=== PATIENT | female | born 1980 | race Hispanic/Latino ===

== ENCOUNTER → 2018-11-23 | Outpatient (CLI) | payer OTHER ==
[~2018-11-23] MED LIST: CALC667T5 PO; FOLI1TAB85 PO; INSU100C14 SQ; INSU100I21 SQ; LISI10TA7 PO; METO50TA18 PO; NIFE30TA91 PO; PANTOPRAZOLE PO; PRED10TA3 PO; vitamin D2 PO
== END | disposition home or self-care (01) ==
LOC: SHCH 10:28
PROVIDERS: ATTEND Internal Medicine Cardiovascular Disease
DX: I11.9 Hypertensive heart disease without heart failure (principal)
CPT/HCPCS: 93306

== ENCOUNTER 2018-12-30 10:00 | Inpatient (IN) | payer MEDICARE ==
[~2018-12-30] VITALS: Ht 160 cm; Wt 68.9 kg
[~2018-12-30 10:00] MED LIST changes: -CALC667T5 PO; +CALC667T6 PO
[2019-01-11] VITALS (19 sets, daily range): BP systolic 122–175; BP diastolic 65–91
--- NOTE | 2019-01-11 15:07 | NUR ---
ABNORMAL EKG SPOKE TO DANIEL UPTON AND ADVISED HIM OF ABNORMAL EKG. ORDERED TROPONIN LEVEL AND TO FAX EKG. EKG FAXED AND TROPONIN LEVEL DONE.
[2019-01-11 15:34] LABS: BASOPHILS % (AUTO) 0.9 % (0.0-5.0); HEMATOCRIT 36.4 % (36-48); LYMPHOCYTES % (AUTO) 10.3 % (21.0-51.0); MEAN CORPUSCULAR HEMOGLOBIN 31.8 pg (27.0-33.0); MEAN CORPUSCULAR HGB CONC 32.4 g/dL (32.0-36.0); MEAN CORPUSCULAR VOLUME 98.2 fL (79-99); MONOCYTES % (AUTO) 7.3 % (3.0-13.0); NEUTROPHILS % (AUTO) 76.5 % (40.0-77.0); PLATELET COUNT (AUTO) 198 K/uL (130-400); RED BLOOD CELL COUNT(AUTO) 3.71 MIL/uL (4.00-5.50); WHITE BLOOD COUNT (AUTO) 7.9 K/uL (4.8-10.8)
[2019-01-11 15:43] LABS: CREATININE 7.4 mg/dL (0.5-1.5); POTASSIUM 4.8 mmol/L (3.5-5.1)
[2019-01-11 15:44] LABS: INR 0.97 (0.85-1.15); PARTIAL THROMBOPLASTIN TIME 36.6 SEC (26.3-35.5); PROTHROMBIN TIME 10.2 SEC (9.6-11.6)
--- NOTE | 2019-01-11 16:15 | NUR ---
meds aspirin 325 mg po given at this time - Dr. Boyer / Dr. estela diego at bedside assessing patient Addendum: 01/12/19 at 0830 by ASCENCION ELLIS RN meds aspirin 325mg given at 1625- Dr. Boyer/ Dr. Estela Diego at bedside assessing patient
[2019-01-11] MEDS ORDERED: ASPIRIN 325 MG TABLET ONE (16:25)
--- NOTE | 2019-01-11 16:25 | NUR ---
assess pt awake and alert, denies any chest pain or any other discomforts. mom at bedside.
--- NOTE | 2019-01-11 16:25 | NUR ---
code code stemi called. Peyton potter notified of elevated troponin level 17.91,
[2019-01-11] MEDS ORDERED: METHYLPREDNISOLONE SOD SUCC 125MG/2ML VIAL ONE (16:37)
[2019-01-11] MEDS ORDERED: DiphenhydrAMINE HCL 50 MG/ML VIAL ONE (16:37)
--- NOTE | 2019-01-11 16:40 | NUR ---
meds benadry 25mg iv/ solumedrol 125mg iv given at this time ,pt allergic to contrast and going in for cath procedure stat
--- NOTE | 2019-01-11 16:45 | NUR ---
patient pt taken to mini lab operator via bed, for code stemi
[2019-01-11] MEDS ORDERED: AMLO10TA7 PO (18:16)
[2019-01-11] MEDS ORDERED: AURYXIA PO (18:16)
[2019-01-11] MEDS ORDERED: INSU100V12 SQ (18:16)
[2019-01-11] MEDS ORDERED: ACETAMINOPHEN-CODEINE 300/30MG TAB PO PRN ×2 (18:30)
[2019-01-11] MEDS ORDERED: NITROGLYCERIN 50 MG/D5% WATER 1 BOT IV PRN (18:30)
[2019-01-11] MEDS ORDERED: DEXTROSE 50%-WATER 50 ML DISP.SYRIN IV PRN (18:30)
[2019-01-11] MEDS ORDERED: MORPHINE SULFATE 4 MG/1ML SYG IV PRN (18:30)
[2019-01-11] MEDS ORDERED: ONDANSETRON HCL 4 MG/2 ML VIAL IVP PRN (18:30)
[2019-01-11] MEDS ORDERED: GLUCAGON 1MG KIT 1 MG ML IM PRN (18:30)
[2019-01-11] MEDS ORDERED: ALPRAZOLAM 0.5 MG TABLET PO PRN (18:30)
--- NOTE | 2019-01-11 19:00 | NUR ---
[facility]CE[facility] WITH STENTS. RT GROIN DDI WITHOUT BLEEDING OR HEMATOMA. PULSES PRESENT WITH DOPPLER. GOOOD CMS TO FEET. PLACED ON OXYACETYLENE CUTTER, NIBP, PULSE OXIMETER. CALL LIGHT GIVEN AND EXPLAINED. INSTRUCTED ON BEDREST IN SUPINE POSITION FOR NOW TO PREVENT BLEEDING AND VERBALIZED UNDERSTANDING. INSTRUCTED TO CALL NURSE IF SHE HAS CHEST PAIN, SOB. ALSO TO CALL IF SHE HAS PAIN OR NUMBNESS IN HER RT LEG. ALSO TO CALL IF SHE FEELS WETNESS OR WARMTH IN RT GROIN.ASSESSMENT COMPLETED SEE FLOW SHEET.
[2019-01-11] MEDS: AMLODIPINE BESYLATE 5 MG TAB PO SCH (21:57)
[2019-01-11] MEDS: METOPROLOL TARTRATE 50 MG TAB PO SCH (21:57)
[2019-01-11] MEDS: LISINOPRIL 10 MG TABLET PO SCH (21:58)
[2019-01-11] MEDS: ATORVASTATIN CALCIUM 20 MG TABLET PO SCH (21:58)
[2019-01-11] MEDS: INSULIN HUMULIN R 100 UNIT/ML 3ML SQ SCH (22:07)
[2019-01-11] MEDS: INSULIN GLARGINE 100 UNITS/ML 10 ML VIAL SQ SCH (22:11)
[2019-01-12] VITALS (11 sets, daily range): BP systolic 94–126; BP diastolic 53–65
[2019-01-12 04:03] LABS: HEMATOCRIT 39.4 % (36-48); MEAN CORPUSCULAR HEMOGLOBIN 32.4 pg (27.0-33.0); MEAN CORPUSCULAR HGB CONC 32.5 g/dL (32.0-36.0); MEAN CORPUSCULAR VOLUME 99.7 fL (79-99); PLATELET COUNT (AUTO) 180 K/uL (130-400); RED BLOOD CELL COUNT(AUTO) 3.95 MIL/uL (4.00-5.50); RED CELL DISTRIBUTION WIDTH 14.6 % (11.0-15.5); WHITE BLOOD COUNT (AUTO) 6.6 K/uL (4.8-10.8)
[2019-01-12 04:29] LABS: POTASSIUM 5.2 mmol/L (3.5-5.1)
[2019-01-12 04:36] LABS: CREATININE 8.2 mg/dL (0.5-1.5); TROPONIN I 27.03 ng/mL (0.00-0.06)
[2019-01-12] MEDS: PANTOPRAZOLE SODIUM 40 MG TABLET.DR PO SCH (06:42)
[2019-01-12] MEDS: INSULIN LISPRO 100 UNIT/ML 3ML SQ SCH ×3 (06:46→16:55)
[2019-01-12] MEDS: INSULIN GLARGINE 100 UNITS/ML 10 ML VIAL SQ SCH ×2 (06:47→20:42)
[2019-01-12] MEDS: INSULIN HUMULIN R 100 UNIT/ML 3ML SQ SCH ×4 (07:30→20:42)
[2019-01-12] MEDS: AURYXIA PO SCH ×3 (08:00→17:00)
[2019-01-12] MEDS ORDERED: CLOPIDOGREL BISULFATE 75 MG TAB PO SCH (09:00)
[2019-01-12] MEDS: LISINOPRIL 10 MG TABLET PO SCH ×2 (09:35→21:00)
[2019-01-12] MEDS: ASPIRIN 81MG TAB.CHEW PO SCH (09:35)
[2019-01-12] MEDS: METOPROLOL TARTRATE 50 MG TAB PO SCH ×2 (09:36→21:00)
[2019-01-12] MEDS ORDERED: HEPARIN SODIUM 5000UNIT/ML 1ML VIAL ONE (20:21)
[2019-01-12] MEDS: TICAGRELOR 90 MG TABLET PO SCH (20:41)
[2019-01-12] MEDS: ATORVASTATIN CALCIUM 20 MG TABLET PO SCH (20:41)
[2019-01-12] MEDS ORDERED: SODIUM CHLORIDE 0.9% 1000ML 1,000 ML IV PRN (20:45)
[2019-01-12] MEDS ORDERED: 0.9% SODIUM CHLORIDE 1000 ML IV BAG IV PRN (20:45)
[2019-01-12] MEDS ORDERED: ACETAMINOPHEN 325 MG TAB PO PRN (20:45)
[2019-01-12] MEDS ORDERED: HEPARIN SODIUM 5000UNIT/ML 1ML VIAL IJ PRN ×2 (20:45)
[2019-01-12] MEDS: AMLODIPINE BESYLATE 5 MG TAB PO SCH (21:00)
[2019-01-13 04:03] VITALS: BP 105/58
[2019-01-13 04:26] LABS: HEMATOCRIT 33.6 % (36-48); MEAN CORPUSCULAR HEMOGLOBIN 32.2 pg (27.0-33.0); MEAN CORPUSCULAR HGB CONC 32.9 g/dL (32.0-36.0); PLATELET COUNT (AUTO) 187 K/uL (130-400); RED BLOOD CELL COUNT(AUTO) 3.43 MIL/uL (4.00-5.50); RED CELL DISTRIBUTION WIDTH 14.8 % (11.0-15.5); WHITE BLOOD COUNT (AUTO) 7.4 K/uL (4.8-10.8)
[2019-01-13 04:45] LABS: CREATININE 5.7 mg/dL (0.5-1.5); PHOSPHORUS 5.2 mg/dL (2.5-4.9); POTASSIUM 3.8 mmol/L (3.5-5.1)
[2019-01-13] MEDS: PANTOPRAZOLE SODIUM 40 MG TABLET.DR PO SCH (06:06)
[2019-01-13] MEDS: INSULIN LISPRO 100 UNIT/ML 3ML SQ SCH ×3 (06:07→16:56)
[2019-01-13] MEDS: INSULIN GLARGINE 100 UNITS/ML 10 ML VIAL SQ SCH ×2 (06:09→21:39)
[2019-01-13] MEDS: INSULIN HUMULIN R 100 UNIT/ML 3ML SQ SCH ×4 (06:09→21:40)
[2019-01-13 07:00] VITALS: BP 96/50
[2019-01-13] MEDS: AURYXIA PO SCH ×3 (08:00→16:57)
[2019-01-13] MEDS ORDERED: METHYLPREDNISOLONE SOD SUCC 125MG/2ML VIAL IVP PRN (08:00)
[2019-01-13] MEDS ORDERED: DiphenhydrAMINE HCL 50 MG/ML VIAL IVP PRN (08:00)
[2019-01-13] MEDS: FOLIC ACID/VITAMIN B COMP W-C 1 MG CAP/TAB PO SCH (08:51)
[2019-01-13] MEDS: ASPIRIN 81MG TAB.CHEW PO SCH (08:51)
[2019-01-13] MEDS: TICAGRELOR 90 MG TABLET PO SCH ×2 (08:52→20:40)
[2019-01-13] MEDS: LISINOPRIL 10 MG TABLET PO SCH ×3 (09:00→20:44)
[2019-01-13] MEDS: METOPROLOL TARTRATE 50 MG TAB PO SCH ×2 (09:00→20:40)
[2019-01-13 11:00] VITALS: BP_SYST 122; BP_SYST 91; BP_DIAS 58; BP_DIAS 74
--- NOTE | 2019-01-13 15:20 | NUR ---
DC PLAN VISITED WITH PATIENT. PATIENT LIVES WITH MOM AND SISTER. SEMI INDEPENDENT ABLE TO PERFORM SOME ADL'S. PATIENT HAS WHEEL CHAIR. PROVIDER [address] [facility] FOR DIALYSIS. FEELS SAFE TO RETURN HOME. Addendum: 01/13/19 at 1522 by ELIAZAR MELCHOR RN CM Amended: Links added.
[2019-01-13 16:00] VITALS: BP_SYST 122; BP_SYST 124; BP_DIAS 68; BP_DIAS 74
[2019-01-13 19:14] VITALS: BP 104/69
[2019-01-13] MEDS: AMLODIPINE BESYLATE 5 MG TAB PO SCH ×2 (20:39→20:43)
[2019-01-13] MEDS: ATORVASTATIN CALCIUM 20 MG TABLET PO SCH (20:40)
[2019-01-14] VITALS (7 sets, daily range): BP systolic 107–137; BP diastolic 63–79
[2019-01-14 03:53] LABS: HEMATOCRIT 33.4 % (36-48); MEAN CORPUSCULAR HEMOGLOBIN 32.2 pg (27.0-33.0); MEAN CORPUSCULAR HGB CONC 32.6 g/dL (32.0-36.0); MEAN CORPUSCULAR VOLUME 98.8 fL (79-99); PLATELET COUNT (AUTO) 202 K/uL (130-400); RED BLOOD CELL COUNT(AUTO) 3.38 MIL/uL (4.00-5.50); RED CELL DISTRIBUTION WIDTH 14.7 % (11.0-15.5); WHITE BLOOD COUNT (AUTO) 6.9 K/uL (4.8-10.8)
[2019-01-14 04:07] LABS: CREATININE 7.6 mg/dL (0.5-1.5); PHOSPHORUS 7.4 mg/dL (2.5-4.9); POTASSIUM 4.1 mmol/L (3.5-5.1)
[2019-01-14] MEDS: PANTOPRAZOLE SODIUM 40 MG TABLET.DR PO SCH ×2 (06:40→18:48)
[2019-01-14] MEDS: INSULIN HUMULIN R 100 UNIT/ML 3ML SQ SCH ×3 (06:41→16:30)
[2019-01-14] MEDS: INSULIN LISPRO 100 UNIT/ML 3ML SQ SCH ×3 (06:44→16:34)
[2019-01-14] MEDS: INSULIN GLARGINE 100 UNITS/ML 10 ML VIAL SQ SCH (06:45)
[2019-01-14 07:15] LABS: HEPATITIS A ANTIBODY IGM Negative (Negative); HEPATITIS B CORE IGM Negative (Negative); HEPATITIS Bs ANTIGEN SCREEN P Negative (Negative)
--- NOTE | 2019-01-14 08:30 | NUR ---
AM ASSESSMENT PT LAYING IN BED, HOB ELEVATED 30 DEGREES, RESTING. A/O X 3. NO SOB. NO DISTRESS NOTED. DENIES CHEST PAIN OR DISCOMFORT. DENIES PALPITATIONS. TELE: SR 70s. DENIES N/V AND/OR DIARRHEA. ANURIA. HD MWF. PT TO HAVE HD TODAY AND POSSIBLE DISCHARGE HOME AFTER TREATMENT COMPLETED. RT GROIN DSG DRY & INTACT. PUNCTURES SITE SOFT, NON-TENDER. NO BLEEDING, NO HEMATOMA NOTED. (+) BILATERAL WEAK PALPABLE PEDAL PULSES. UP AD JAZMYNE. INSTRUCTED TO CALL FOR ASSISTANCE. CALL PEREZ W/IN REACH.
[2019-01-14] MEDS ORDERED: Folic Acid/Vitamin B Comp W-C PO (13:52)
[2019-01-14] MEDS ORDERED: TICA90TA PO (13:52)
[2019-01-14] MEDS ORDERED: ATOR20TA65 PO (13:52)
[2019-01-14] MEDS ORDERED: ASPI-1005 PO (13:52)
--- NOTE | 2019-01-14 18:30 | NUR ---
HEMODIALYSIS 2.3L REMOVED DURING HD.
[2019-01-14] MEDS: TICAGRELOR 90 MG TABLET PO SCH (18:48)
[2019-01-14] MEDS: ASPIRIN 81MG TAB.CHEW PO SCH (18:48)
[2019-01-14] MEDS: METOPROLOL TARTRATE 50 MG TAB PO SCH (18:49)
[2019-01-14] MEDS: FOLIC ACID/VITAMIN B COMP W-C 1 MG CAP/TAB PO SCH (18:49)
[2019-01-14] MEDS: LISINOPRIL 10 MG TABLET PO SCH (18:49)
--- NOTE | 2019-01-14 18:50 | NUR ---
DISCHARGE VERBAL & WRITTEN DISCHARGE INSTRUCTIONS REVIEWED & GIVEN TO PT. QUESTIONS ENCOURAGED & CLARIFIED. PROPER CARE & ACTIVITY AFTER LHC W/STENT REVIEWED. NEW PRESCRIBED MEDICATIONS REVIEWED. PRESCRIPTION X 2 GIVEN TO PT. SIGNED COPIES OF PRESCRIPTIONS PLACED IN CHART. TELE ROBIN REMOVED. IV DISCONTINUED. PT TO GATHER PERSONAL BELONGINGS. WILL NOTIFY STAFF WHEN FAMILY ARRIVES TO TAKE PT HOME.
== END 2019-01-14 20:15 | disposition home or self-care (01) | DRG 246 ==
LOC: OBSVTOIN 01-11 18:28 → DAHIP 01-11 18:28 → 2BH 01-11 18:56 → 2DH 01-12 09:06 → EDSTATUS 01-13 14:00
PROVIDERS: ADMIT Internal Medicine Nephrology; ATTEND Internal Medicine Nephrology
PROC: 4A023N7 Measurement of Cardiac Sampling and Pressure, Left Heart, Percutaneous Approach (ICD-10-PCS; principal; 2019-01-11)
PROC: 027035Z Dilation of Coronary Artery, One Artery with Two Drug-eluting Intraluminal Devices, Percutaneous Approach (ICD-10-PCS; 2019-01-11)
PROC: B2111ZZ Fluoroscopy of Multiple Coronary Arteries using Low Osmolar Contrast (ICD-10-PCS; 2019-01-11)
PROC: 5A1D70Z Performance of Urinary Filtration, Intermittent, Less than 6 Hours Per Day (ICD-10-PCS; 2019-01-12)
PROC: 5A1D70Z Performance of Urinary Filtration, Intermittent, Less than 6 Hours Per Day (ICD-10-PCS; 2019-01-14)
DX: I21.09 ST elevation (STEMI) myocardial infarction involving other coronary artery of anterior wall (principal); N18.6 End stage renal disease; I12.0 Hypertensive chronic kidney disease with stage 5 chronic kidney disease or end stage renal disease; Z94.0 Kidney transplant status; I25.119 Atherosclerotic heart disease of native coronary artery with unspecified angina pectoris; I70.213 Atherosclerosis of native arteries of extremities with intermittent claudication, bilateral legs; D64.9 Anemia, unspecified; E10.22 Type 1 diabetes mellitus with diabetic chronic kidney disease; E10.319 Type 1 diabetes mellitus with unspecified diabetic retinopathy without macular edema; E10.40 Type 1 diabetes mellitus with diabetic neuropathy, unspecified; E10.51 Type 1 diabetes mellitus with diabetic peripheral angiopathy without gangrene; E10.65 Type 1 diabetes mellitus with hyperglycemia; E78.5 Hyperlipidemia, unspecified; H54.61 Unqualified visual loss, right eye, normal vision left eye; I25.5 Ischemic cardiomyopathy; Z99.2 Dependence on renal dialysis; Z79.02 Long term (current) use of antithrombotics/antiplatelets; Z79.4 Long term (current) use of insulin; Z79.82 Long term (current) use of aspirin; Z79.899 Other long term (current) drug therapy; Z83.3 Family history of diabetes mellitus; Z84.1 Family history of disorders of kidney and ureter; Z88.8 Allergy status to other drugs, medicaments and biological substances; Z91.041 Radiographic dye allergy status
CPT/HCPCS: 36415; 71045; 80048; 80061; 80074; 82550; 82948; 83874; 84100; 84484; 85025; 85027; 85347; 85610; 85730; 90935; 93005; 93306; 93458; 99156; 99157; C1725; C1760; C1769; C1887; C1894; C9600; G0378; J1200; J1644; J1815; J2930; J7030

== ENCOUNTER → 2019-03-14 | Outpatient (CLI) | payer MEDICARE ==
[~2019-03-14] MED LIST changes: +AMLO10TA7 PO; +ASPI-1005 PO; +ATOR20TA65 PO; +AURYXIA PO; -CALC667T6 PO; -FOLI1TAB85 PO; +Folic Acid/Vitamin B Comp W-C PO; +INSU100V12 SQ; -NIFE30TA91 PO; -PANTOPRAZOLE PO; -PRED10TA3 PO; +TICA90TA PO; -vitamin D2 PO
== END | disposition home or self-care (01) ==
LOC: RAH 15:47
PROVIDERS: ATTEND Internal Medicine Nephrology
DX: M85.861 Other specified disorders of bone density and structure, right lower leg (principal)
CPT/HCPCS: 73562

== ENCOUNTER → 2019-04-12 | Outpatient (CLI) | payer MEDICARE | END | disposition home or self-care (01) | LOC: OIH 07:40 | PROVIDERS: ATTEND Student in an Organized Health Care Education/Training Program | DX: K43.9 Ventral hernia without obstruction or gangrene (principal); N83.201 Unspecified ovarian cyst, right side; N26.1 Atrophy of kidney (terminal); I70.0 Atherosclerosis of aorta | CPT/HCPCS: 74176 ==

== ENCOUNTER 2019-05-05 06:27 | Emergency (ER) | payer MEDICARE | END 2019-05-05 07:14 | disposition home or self-care (01) | LOC: EDH 06:27 | DX: T82.49XA Other complication of vascular dialysis catheter, initial encounter (principal); I25.10 Atherosclerotic heart disease of native coronary artery without angina pectoris; E11.22 Type 2 diabetes mellitus with diabetic chronic kidney disease; I12.0 Hypertensive chronic kidney disease with stage 5 chronic kidney disease or end stage renal disease; N18.6 End stage renal disease; Z99.2 Dependence on renal dialysis; Z91.041 Radiographic dye allergy status; Z88.1 Allergy status to other antibiotic agents; Z88.8 Allergy status to other drugs, medicaments and biological substances; Y84.8 Other medical procedures as the cause of abnormal reaction of the patient, or of later complication, without mention of misadventure at the time of the procedure; Y92.89 Other specified places as the place of occurrence of the external cause | CPT/HCPCS: 71046 ==

== ENCOUNTER 2019-08-18 20:15 | Emergency (ER) | payer MEDICARE ==
[2019-08-18 21:26] LABS: BASOPHILS % (AUTO) 0.9 % (0.0-5.0); EOSINOPHILS % (AUTO) 12.9 % (0.0-8.0); HEMATOCRIT 37.8 % (36-48); MEAN CORPUSCULAR HEMOGLOBIN 30.2 pg (27.0-33.0); MEAN CORPUSCULAR HGB CONC 32.8 g/dL (32.0-36.0); MONOCYTES % (AUTO) 7.1 % (3.0-13.0); NEUTROPHILS % (AUTO) 62.8 % (40.0-77.0); PLATELET COUNT (AUTO) 200 K/uL (130-400); RED BLOOD CELL COUNT(AUTO) 4.11 MIL/uL (4.00-5.50); RED CELL DISTRIBUTION WIDTH 12.1 % (11.0-15.5); WHITE BLOOD COUNT (AUTO) 5.9 K/uL (4.8-10.8)
[2019-08-18] MEDS ORDERED: MECLIZINE HCL 25 MG TABLET ONE (21:44)
[2019-08-18 21:45] LABS: CREATININE 6.9 mg/dL (0.5-1.5); POTASSIUM 4.9 mmol/L (3.5-5.1)
[2019-08-18 21:47] LABS: INR 0.97 (0.85-1.15); PARTIAL THROMBOPLASTIN TIME 30.6 SEC (26.3-35.5); PROTHROMBIN TIME 10.2 SEC (9.6-11.6)
[2019-08-18 21:49] LABS: ALBUMIN 3.8 g/dL (3.5-5.0); BILIRUBIN,TOTAL 0.4 mg/dL (0.2-1.0); TOTAL PROTEIN, SERUM 8.5 g/dL (6.0-8.3)
== END 2019-08-18 23:02 | disposition home or self-care (01) ==
LOC: EDH 20:15
DX: H81.399 Other peripheral vertigo, unspecified ear (principal); I12.0 Hypertensive chronic kidney disease with stage 5 chronic kidney disease or end stage renal disease; N18.6 End stage renal disease; E11.22 Type 2 diabetes mellitus with diabetic chronic kidney disease; I25.10 Atherosclerotic heart disease of native coronary artery without angina pectoris; R11.2 Nausea with vomiting, unspecified; Z99.2 Dependence on renal dialysis; Z91.041 Radiographic dye allergy status; Z88.1 Allergy status to other antibiotic agents; Z88.8 Allergy status to other drugs, medicaments and biological substances
CPT/HCPCS: 36415; 70450; 80053; 82150; 82550; 83690; 84484; 85025; 85610; 85730; 93005

== ENCOUNTER → 2020-08-16 | Outpatient (CLI) | payer MEDICARE ==
[~2020-08-16] MED LIST changes: -AMLO10TA7 PO; -AURYXIA PO; +FOLI1TAB85 PO; -Folic Acid/Vitamin B Comp W-C PO; +LIDOCAINE HCL 2% JELLY 5 ML TP ONE; -LISI10TA7 PO; +TICA60TA PO; -TICA90TA PO
== END | disposition home or self-care (01) ==
LOC: WHH 10:30
PROVIDERS: ATTEND Family Medicine
DX: T81.31XA Disruption of external operation (surgical) wound, not elsewhere classified, initial encounter (principal); E10.22 Type 1 diabetes mellitus with diabetic chronic kidney disease; I12.0 Hypertensive chronic kidney disease with stage 5 chronic kidney disease or end stage renal disease; N18.6 End stage renal disease; E10.21 Type 1 diabetes mellitus with diabetic nephropathy; E10.51 Type 1 diabetes mellitus with diabetic peripheral angiopathy without gangrene; I25.10 Atherosclerotic heart disease of native coronary artery without angina pectoris; K82.8 Other specified diseases of gallbladder; H54.61 Unqualified visual loss, right eye, normal vision left eye; E78.5 Hyperlipidemia, unspecified; I25.2 Old myocardial infarction; F41.9 Anxiety disorder, unspecified; Z88.8 Allergy status to other drugs, medicaments and biological substances; Z99.2 Dependence on renal dialysis; Y83.8 Other surgical procedures as the cause of abnormal reaction of the patient, or of later complication, without mention of misadventure at the time of the procedure; Y92.238 Other place in hospital as the place of occurrence of the external cause
CPT/HCPCS: A4450; G0463

== ENCOUNTER → 2020-08-23 | Outpatient (CLI) | payer MEDICARE | END | disposition home or self-care (01) | LOC: WHH 08:30 | PROVIDERS: ATTEND Family Medicine | DX: T81.31XD Disruption of external operation (surgical) wound, not elsewhere classified, subsequent encounter (principal); E11.22 Type 2 diabetes mellitus with diabetic chronic kidney disease; I12.0 Hypertensive chronic kidney disease with stage 5 chronic kidney disease or end stage renal disease; N18.6 End stage renal disease; E11.21 Type 2 diabetes mellitus with diabetic nephropathy; E11.51 Type 2 diabetes mellitus with diabetic peripheral angiopathy without gangrene; I25.10 Atherosclerotic heart disease of native coronary artery without angina pectoris; K82.8 Other specified diseases of gallbladder; H54.61 Unqualified visual loss, right eye, normal vision left eye; E78.5 Hyperlipidemia, unspecified; I25.2 Old myocardial infarction; F41.9 Anxiety disorder, unspecified; Z88.8 Allergy status to other drugs, medicaments and biological substances; Z99.2 Dependence on renal dialysis; Y83.8 Other surgical procedures as the cause of abnormal reaction of the patient, or of later complication, without mention of misadventure at the time of the procedure | CPT/HCPCS: 11042 ==

== ENCOUNTER → 2020-08-30 | Outpatient (CLI) | payer MEDICARE | END | disposition home or self-care (01) | LOC: WHH 09:00 | PROVIDERS: ATTEND Family Medicine | DX: T81.31XD Disruption of external operation (surgical) wound, not elsewhere classified, subsequent encounter (principal); E11.22 Type 2 diabetes mellitus with diabetic chronic kidney disease; I12.0 Hypertensive chronic kidney disease with stage 5 chronic kidney disease or end stage renal disease; N18.6 End stage renal disease; E11.21 Type 2 diabetes mellitus with diabetic nephropathy; E11.51 Type 2 diabetes mellitus with diabetic peripheral angiopathy without gangrene; I25.10 Atherosclerotic heart disease of native coronary artery without angina pectoris; K82.8 Other specified diseases of gallbladder; H54.61 Unqualified visual loss, right eye, normal vision left eye; E78.5 Hyperlipidemia, unspecified; I25.2 Old myocardial infarction; F41.9 Anxiety disorder, unspecified; Z88.8 Allergy status to other drugs, medicaments and biological substances; Z99.2 Dependence on renal dialysis; Y83.8 Other surgical procedures as the cause of abnormal reaction of the patient, or of later complication, without mention of misadventure at the time of the procedure | CPT/HCPCS: 97605; G0463 ==

== ENCOUNTER → 2020-09-06 | Outpatient (CLI) | payer MEDICARE | END | disposition home or self-care (01) | LOC: WHH 08:30 | PROVIDERS: ATTEND Family Medicine | DX: T81.32XD Disruption of internal operation (surgical) wound, not elsewhere classified, subsequent encounter (principal); E11.22 Type 2 diabetes mellitus with diabetic chronic kidney disease; I12.0 Hypertensive chronic kidney disease with stage 5 chronic kidney disease or end stage renal disease; N18.6 End stage renal disease; E11.21 Type 2 diabetes mellitus with diabetic nephropathy; E11.51 Type 2 diabetes mellitus with diabetic peripheral angiopathy without gangrene; I25.10 Atherosclerotic heart disease of native coronary artery without angina pectoris; K82.8 Other specified diseases of gallbladder; H54.61 Unqualified visual loss, right eye, normal vision left eye; E78.5 Hyperlipidemia, unspecified; I25.2 Old myocardial infarction; F41.9 Anxiety disorder, unspecified; Z88.8 Allergy status to other drugs, medicaments and biological substances; Z99.2 Dependence on renal dialysis; Y83.8 Other surgical procedures as the cause of abnormal reaction of the patient, or of later complication, without mention of misadventure at the time of the procedure | CPT/HCPCS: 97605; G0463 ==

== ENCOUNTER → 2020-09-13 | Outpatient (CLI) | payer MEDICARE ==
[~2020-09-13] MED LIST changes: -LIDOCAINE HCL 2% JELLY 5 ML TP ONE
== END | disposition home or self-care (01) ==
LOC: WHH 08:13
PROVIDERS: ATTEND Family Medicine
DX: T81.31XD Disruption of external operation (surgical) wound, not elsewhere classified, subsequent encounter (principal); E11.22 Type 2 diabetes mellitus with diabetic chronic kidney disease; I12.0 Hypertensive chronic kidney disease with stage 5 chronic kidney disease or end stage renal disease; N18.6 End stage renal disease; E11.21 Type 2 diabetes mellitus with diabetic nephropathy; E11.51 Type 2 diabetes mellitus with diabetic peripheral angiopathy without gangrene; I25.10 Atherosclerotic heart disease of native coronary artery without angina pectoris; K82.8 Other specified diseases of gallbladder; H54.61 Unqualified visual loss, right eye, normal vision left eye; E78.5 Hyperlipidemia, unspecified; I25.2 Old myocardial infarction; F41.9 Anxiety disorder, unspecified; Z88.8 Allergy status to other drugs, medicaments and biological substances; Z99.2 Dependence on renal dialysis; Y83.8 Other surgical procedures as the cause of abnormal reaction of the patient, or of later complication, without mention of misadventure at the time of the procedure
CPT/HCPCS: A6021; A6197; G0463

== ENCOUNTER → 2020-09-20 | Outpatient (CLI) | payer MEDICARE ==
[~2020-09-20] MED LIST changes: +LIDOCAINE HCL 2% JELLY 5 ML TP ONE
== END | disposition home or self-care (01) ==
LOC: WHH 09:00
PROVIDERS: ATTEND Family Medicine
DX: T81.31XD Disruption of external operation (surgical) wound, not elsewhere classified, subsequent encounter (principal); E11.628 Type 2 diabetes mellitus with other skin complications; E11.22 Type 2 diabetes mellitus with diabetic chronic kidney disease; I12.0 Hypertensive chronic kidney disease with stage 5 chronic kidney disease or end stage renal disease; N18.6 End stage renal disease; E11.21 Type 2 diabetes mellitus with diabetic nephropathy; E11.51 Type 2 diabetes mellitus with diabetic peripheral angiopathy without gangrene; I25.10 Atherosclerotic heart disease of native coronary artery without angina pectoris; K82.8 Other specified diseases of gallbladder; H54.61 Unqualified visual loss, right eye, normal vision left eye; E78.5 Hyperlipidemia, unspecified; I25.2 Old myocardial infarction; F41.9 Anxiety disorder, unspecified; Z88.8 Allergy status to other drugs, medicaments and biological substances; Z99.2 Dependence on renal dialysis; Y83.8 Other surgical procedures as the cause of abnormal reaction of the patient, or of later complication, without mention of misadventure at the time of the procedure
CPT/HCPCS: 11042; A6021; A6197

== ENCOUNTER → 2020-09-27 | Outpatient (CLI) | payer MEDICARE ==
[~2020-09-27] MED LIST changes: -LIDOCAINE HCL 2% JELLY 5 ML TP ONE
== END | disposition home or self-care (01) ==
LOC: WHH 08:25
PROVIDERS: ATTEND Family Medicine
DX: T81.31XD Disruption of external operation (surgical) wound, not elsewhere classified, subsequent encounter (principal); E11.628 Type 2 diabetes mellitus with other skin complications; E11.22 Type 2 diabetes mellitus with diabetic chronic kidney disease; I12.0 Hypertensive chronic kidney disease with stage 5 chronic kidney disease or end stage renal disease; N18.6 End stage renal disease; E11.21 Type 2 diabetes mellitus with diabetic nephropathy; E11.51 Type 2 diabetes mellitus with diabetic peripheral angiopathy without gangrene; I25.10 Atherosclerotic heart disease of native coronary artery without angina pectoris; K82.8 Other specified diseases of gallbladder; H54.61 Unqualified visual loss, right eye, normal vision left eye; E78.5 Hyperlipidemia, unspecified; I25.2 Old myocardial infarction; F41.9 Anxiety disorder, unspecified; Z88.8 Allergy status to other drugs, medicaments and biological substances; Z99.2 Dependence on renal dialysis; Y83.8 Other surgical procedures as the cause of abnormal reaction of the patient, or of later complication, without mention of misadventure at the time of the procedure
CPT/HCPCS: G0463

== ENCOUNTER → 2021-07-11 | Outpatient (CLI) | payer MEDICARE | END | disposition home or self-care (01) | LOC: SHCH 15:56 | PROVIDERS: ATTEND Internal Medicine Cardiovascular Disease | DX: I11.9 Hypertensive heart disease without heart failure (principal); I25.10 Atherosclerotic heart disease of native coronary artery without angina pectoris; E11.9 Type 2 diabetes mellitus without complications; E78.5 Hyperlipidemia, unspecified | CPT/HCPCS: 93306 ==

== ENCOUNTER → 2021-10-15 | Outpatient (CLI) | payer MEDICARE ==
[~2021-10-15] VITALS: Ht 157.5 cm; Wt 71.2 kg
[~2021-10-15] MED LIST changes: +REGADENOSON 0.4 MG/5 ML PF SYG IVP SCH
== END | disposition home or self-care (01) ==
LOC: SHCH 08:32
PROVIDERS: ATTEND Internal Medicine Cardiovascular Disease
DX: I11.9 Hypertensive heart disease without heart failure (principal); I73.9 Peripheral vascular disease, unspecified; E78.5 Hyperlipidemia, unspecified
CPT/HCPCS: 78452; 93017; 96374; A9500 ×2; J2785

== ENCOUNTER 2023-02-19 15:16 | Emergency (ER) | payer MEDICARE ==
[~2023-02-19] VITALS: Ht 157.5 cm; Wt 68.0 kg
[~2023-02-19 15:16] MED LIST changes: -INSU100I21 SQ; +INSU100I22 SQ; -REGADENOSON 0.4 MG/5 ML PF SYG IVP SCH
[2023-02-19 15:21] VITALS: BP 180/90; PULSE 88; RESP 18
[2023-02-19] MEDS ORDERED: DIPH,PERTUSS(ACELL),TET VAC/PF 0.5 ML VIAL IM ONE (21:30)
[2023-02-19] MEDS ORDERED: LIDOCAINE HCL 1% 20 ML VIAL INJ SCH (21:30)
[2023-02-19] MEDS ORDERED: IBUP-1493 PO (21:51)
[2023-02-19] MEDS ORDERED: DOXY-252 PO (21:51)
[2023-02-19] MEDS ORDERED: SULF1TAB42 PO (21:51)
[2023-02-19] MEDS ORDERED: TETANUS/DIPHTHERIA TOXOID [ADULT] 0.5 ML VIAL IM ONE (23:00)
== END 2023-02-19 23:17 | disposition home or self-care (01) ==
LOC: EDH 15:16
DX: L02.31 Cutaneous abscess of buttock (principal); E11.9 Type 2 diabetes mellitus without complications; E78.00 Pure hypercholesterolemia, unspecified; I10 Essential (primary) hypertension; Z79.02 Long term (current) use of antithrombotics/antiplatelets; Z79.4 Long term (current) use of insulin; Z79.82 Long term (current) use of aspirin; Z88.1 Allergy status to other antibiotic agents; Z88.8 Allergy status to other drugs, medicaments and biological substances; Z90.49 Acquired absence of other specified parts of digestive tract; Z94.83 Pancreas transplant status
CPT/HCPCS: 10060; 87070; 87076; 87077; 87186; 90471; 90714

== ENCOUNTER → 2023-10-29 | Outpatient (CLI) | payer MEDICARE ==
[~2023-10-29] MED LIST changes: -ASPI-1005 PO; -ATOR20TA65 PO; -FOLI1TAB85 PO; +INSLAN SQ; -INSU100C14 SQ; -INSU100I22 SQ; -INSU100V12 SQ; +LACT1CAP79 PO; -METO50TA18 PO; -TICA60TA PO
== END | disposition home or self-care (01) ==
LOC: OIH 13:40
PROVIDERS: ATTEND Internal Medicine Nephrology
DX: M17.0 Bilateral primary osteoarthritis of knee (principal)

== ENCOUNTER → 2023-12-31 | Outpatient (CLI) | payer MEDICARE | END | disposition home or self-care (01) | LOC: SHCH 07:33 | PROVIDERS: ATTEND Internal Medicine Cardiovascular Disease | DX: I08.3 Combined rheumatic disorders of mitral, aortic and tricuspid valves (principal); R07.9 Chest pain, unspecified | CPT/HCPCS: 93306 ==

== ENCOUNTER → 2024-01-14 | Outpatient (CLI) | payer MEDICARE | END | disposition home or self-care (01) | LOC: SHCH 07:38 | PROVIDERS: ATTEND Internal Medicine Cardiovascular Disease | DX: I70.293 Other atherosclerosis of native arteries of extremities, bilateral legs (principal); R60.9 Edema, unspecified; I87.2 Venous insufficiency (chronic) (peripheral); M79.605 Pain in left leg; M79.604 Pain in right leg; I11.9 Hypertensive heart disease without heart failure; E78.5 Hyperlipidemia, unspecified; I25.10 Atherosclerotic heart disease of native coronary artery without angina pectoris; E11.21 Type 2 diabetes mellitus with diabetic nephropathy; Z99.2 Dependence on renal dialysis; Z79.899 Other long term (current) drug therapy | CPT/HCPCS: 93925; 93970 ==

== ENCOUNTER → 2024-05-18 | Outpatient (CLI) | payer MEDICARE ==
--- NOTE | 2024-05-18 13:26 | HMCIMG ---
CHEST 1VW REASON: SOB COMPARISON: 10/20/2023 FINDINGS: Single view of the chest was obtained. Lungs are clear. Heart size is normal. There is no pulmonary vascular congestion. Mediastinum and bony thorax appear unremarkable. Right-sided dialysis catheter remains in place. Stent is again noted in the region of the left to axillary and subclavian vein. IMPRESSION: 1. No acute finding, no change.
== END | disposition home or self-care (01) ==
LOC: RAH 11:14
PROVIDERS: ATTEND Internal Medicine Nephrology
DX: R06.02 Shortness of breath (principal)
CPT/HCPCS: 71045

== ENCOUNTER 2025-04-16 19:18 | Emergency (ER) | payer MEDICARE ==
[~2025-04-16] VITALS: Ht 157.5 cm; Wt 45.4 kg
[~2025-04-16 19:18] MED LIST changes: +AMLO-257 PO; +ASPI-1005 PO; +ATOR40TA69 PO; +CLOP75TA32 PO; +ESCI-8 PO; +FOLI0.8T22 PO; +HYDR-3830 PO; -INSLAN SQ; +INSREG; -LACT1CAP79 PO; +MECL-226 PO; +SEVE800T27 PO
[2025-04-16] MEDS ORDERED: TOBR5DRO67 OP (21:21)
--- NOTE | 2025-04-16 21:23 | ERN ---
General Chief Complaint: Eye Problems Stated Complaint: RT EYE PAIN Time Seen by MD: 19:29 Time Seen by Midlevel: 19:29 Source: patient History of Present Illness Initial Comments 45-year-old female presents to the emergency department for evaluation of right eyelid swelling. This started over a week ago and has already seen her primary care doctor for this issue. Allergies: Coded Allergies: Iodine and Iodide Containing Produc (Unverified Allergy, Severe, 11/23/18) cephalexin (Unverified Allergy, Severe, 11/23/18) promethazine (Unverified Allergy, Severe, 11/23/18) No Allergy Information Available (Verified Allergy, Unknown, 01/06/17) Home Meds Reported Medications Insulin Regular, Human (Novolin R) 100 Unit/Ml Vial, 10 UNITS TID 01/09/25 Sevelamer HCl (Sevelamer HCl) 800 Mg Tablet, 800 MG PO TIDMEALS, TAB 01/06/25 Meclizine HCl (Meclizine HCl) 12.5 Mg Tablet, 25 MG PO AD PRN for VERTIGO, TAB 01/06/25 Amlodipine Besylate (Amlodipine Besylate) 5 Mg Tablet, 1 TAB PO DAILY for 30 Days, #30 TAB 0 Refills 01/06/25 Escitalopram Oxalate (Escitalopram Oxalate) 10 Mg Tablet, 1 TAB PO DAILY for 30 Days, #30 TAB 0 Refills 01/06/25 Folic Acid/Vitamin B Comp W-C (Leydi-Kaylynn Tablet) 0.8 Mg Tablet, 1 TAB PO DAILY for 30 Days, #30 TAB 0 Refills 01/06/25 Clopidogrel Bisulfate (Clopidogrel) 75 Mg Tablet, 1 TAB PO DAILY for 30 Days, #30 TAB 0 Refills 01/06/25 Hydroxyzine HCl (Hydroxyzine HCl) 10 Mg Tablet, 1 TAB PO HS PRN for INSOMNIA for 30 Days, #30 TAB 0 Refills 01/06/25 Atorvastatin Calcium (LIPITOR) 40 Mg Tablet, 1 TAB PO DAILY for 30 Days, #30 TAB 0 Refills 01/06/25 Aspirin (ASPIRIN 81MG CHEW TAB) 81 Mg Tab.chew, 1 TAB PO DAILY for 30 Days, #30 TAB 0 Refills 01/06/25 Past Medical History Past Medical History: CAD, Diabetes-Type II, High Cholesterol, Heart Disease, Hypertension, Renal Disese, Renal Failure Past Surgical History: Other, Surgical History Other: KIDNEY TRANSPLANT, PANCREASE TRANSPLANT, LEFT BKA, RT GREAT TOE Social History Social History: Negative Female( History) History: Not Applicable ROS Dictation CONSTITUTIONAL: Negative except for HPI HEAD/FACE: Negative except for HPI EENT: Negative except for HPI RESPIRATORY: Negative except for HPI GASTROINTESTINAL/ABDOMINAL: Negative except for HPI GENITOURINARY: Negative except for HPI MUSCULOSKELETAL: Negative except for HPI INTEGUMENTARY: Negative except for HPI NEUROLOGICAL/PSYCH: Negative except for HPI HEMATOLOGIC/LYMPHATIC: Negative except for HPI All Systems Negative, Except as noted above. 13 point review of systems assessed and all negative except for above. Physical Exam Physical Exam Dictation Vital Signs reviewed PHYSICAL EXAM: GENERAL: alert,, awake oriented x 3 HEENT: EOMI, Sclera non icteric, moist mucosa, swelling to the right eyelid NECK: Supple, no JVD, trachea midline LUNGS: Clear breath sounds bilaterally. No wheezes HEART: Regular rate and rhythm. Normal S1 and S2, without murmurs ABD: Abdomen soft, nontender. Bowel sounds present EXT: No clubbing or cyanosis, NEURO: Alert and oriented to person, follows commands MDM MDM: Differential diagnosis: Blepharitis, conjunctivitis, There are no social concerns with this patient. Prescription drug management Prescriptions will include: TobraDex Medical management and examination interpretation discussions were had by me with other qualified healthcare professionals as indicated for the patient's care. ED Course Vital Signs Date Time Temp Pulse Resp B/P (MAP) Pulse Ox O2 Delivery O2 Flow Rate FiO2 04/16/25 19:19 98.4 78 16 160/89 97 Nasal Cannula DX & DISP Disposition: Discharge Departure Impression: Primary Impression: Blepharitis, right eye Condition: Stable Scripts Tobramycin/Dexamethasone (Tobradex St Eye Drops) 0.3 %-0.05 % Drops.susp 1 DROP OP QID, #5 ML 0 Refills Prov: OTTONIEL GARCIA PAC 04/16/25 Additional Instructions: Please follow up with your primary care doctor or [facility] in [place] for further evaluation. Referrals: NELLA ALVARADO MD (PCP) I have reviewed the case, and I agree with, Diagnosis and Plan I performed the substantive portion of the visit. I have reviewed and personally made and approve the management plan that is documented in the note by myself or the MARJORIE. I acknowledge for responsibility for the patient's management plan. OTTONIEL GARCIA PAC Apr 16, 2025 21:23
[2025-04-16 23:15] VITALS: BP 171/81; PULSE 78; RESP 18; TEMP 97.3; O2SAT 99
--- NOTE | 2025-04-16 23:18 | NUR ---
PT NOTIFIED OF ELEVATED BP. STATES " ITS THE DAY BEFORE DIALYSIS. ITS ABOUT RIGHT, ITS ALWAYS HIGH THE DAYS BEFORE" PT STATES SHE TAKES HER HTN MEDICATIONS IN THE MORNING. OTTONIEL SANCHEZ MADE AWARE. NO ORDERS GIVEN. STATES " OK TO DISCHARGE" PT DENIES HEADACHE OR N/VD DIZZINESS
== END 2025-04-16 23:19 | disposition home or self-care (01) ==
LOC: EDH 19:18
DX: H01.003 Unspecified blepharitis right eye, unspecified eyelid (principal); E11.9 Type 2 diabetes mellitus without complications; E78.00 Pure hypercholesterolemia, unspecified; I11.9 Hypertensive heart disease without heart failure; I25.10 Atherosclerotic heart disease of native coronary artery without angina pectoris; Z88.1 Allergy status to other antibiotic agents; Z88.8 Allergy status to other drugs, medicaments and biological substances; Z91.041 Radiographic dye allergy status; Z79.02 Long term (current) use of antithrombotics/antiplatelets; Z79.82 Long term (current) use of aspirin; Z79.4 Long term (current) use of insulin; Z89.512 Acquired absence of left leg below knee; Z79.899 Other long term (current) drug therapy; Z94.0 Kidney transplant status; Z94.83 Pancreas transplant status
CPT/HCPCS: 99283